=== PATIENT | male | born 1985 | race Caucasian/White ===

== ENCOUNTER 2024-05-28 09:10 | Emergency (ER) | payer MEDICAID, SELFPAY ==
[2024-05-28 09:13] VITALS: BP 150/92; PULSE 97; RESP 18; TEMP 36.4; O2SAT 98; BMI 30.7
--- NOTE | 2024-05-28 10:29 | CRLHL7_ITS ---
For Patients: As a result of the Century Cures Act, medical imaging exams and procedure reports are released immediately into your electronic medical record. You may view this report before your referring provider. If you have questions, please contact your health care provider. Indication: BUTTOCK ABSCESS; 75 LB WEIGHT LOSS Technique: CT abdomen/pelvis with IV contrast, 108 mL Isovue 370 Comparison: None Findings: Lower thorax: Calcified granulomas in the right lower lobe. Abdomen/pelvis: Nodular hepatic contour suggestive of cirrhotic changes. Slightly heterogeneous perfusion of the right hepatic lobe. [place] tail liver morphology. Subcentimeter hypoattenuating lesion in the left hepatic lobe, incompletely characterized on this exam (series number 2, image 29). The gallbladder and biliary system are unremarkable. Spleen is at the upper limits of normal in size. The pancreas and bilateral adrenal glands are unremarkable in appearance. The kidneys, ureters, and bladder are unremarkable. The seminal vesicles, prostate, and visualized external genitalia are unremarkable. There is no evidence of bowel obstruction or inflammation. The appendix is normal. Scattered colonic diverticula without CT evidence of acute diverticulitis. No intra-abdominal or intrapelvic free air, free fluid, or abscess. No abdominopelvic lymphadenopathy. The vasculature is unremarkable. Soft tissue/musculoskeletal: Suspected postsurgical changes of prior ventral abdominal wall hernia repair. There is mild edema in the subcutaneous fat of the visualized right perianal region/perineum without peripherally enhancing fluid collection to suggest the presence of an abscess. The bones are unremarkable in appearance. Impression: 1. There is mild edema in the subcutaneous fat of the visualized right perianal region/perineum without peripherally enhancing fluid collection to suggest the presence of an abscess. Per conversation with the orthopedic radiologic technologist, will rescan the patient with limited field of view of the pelvis extending to the mid femurs to exclude a more inferior abscess. 2. Cirrhotic liver morphology with some heterogeneous perfusion of the right hepatic lobe and a subcentimeter low attenuating lesion in the left hepatic lobe, incompletely characterized on this exam. Recommend outpatient CT or MR with a liver protocol for further assessment. Please note that all CT scans at this facility use dose modulation, iterative reconstruction, and/or weight-based dosing when appropriate to reduce radiation dose to as low as reasonably achievable. Dictated by Chase Contreras MD @ 05/28/2024 11:12:26 AM (Electronically Signed)
--- NOTE | 2024-05-28 10:30 | ED.SKABFB ---
HPI - Skin/Abscess/Foreign Bdy General Chief complaint: Skin/Abscess/Foreign Body Stated complaint: abscess Time Seen by Provider: 05/28/24 09:19 History of Present Illness HPI narrative: This 38-year-old male comes in with a painful abscess in his right buttock. He states that he had similar symptoms about 18 months ago and got relief when it was drained. He also reports a 75 lb weight loss over the past year so. Initially he states that this was an unintentional weight loss however he then reports that he did stop using alcohol and that may have accounted for some of the weight loss. He does report a family history of colon problems including cancer. The family member was about 60 years old when this occurred. He does not report any fevers. Related Data Previous Rx's ?Medication ?Instructions ?Recorded cephalexin 500 mg capsule 500 mg PO TID 7 days #21 caps 05/28/24 metformin 500 mg tablet 500 mg PO BID #60 tabs 05/28/24 Allergies Allergy/AdvReac Type Severity Reaction Status Date / Time No Known Drug Allergies Allergy Verified 05/28/24 10:54 Review of Systems Status of ROS: Reports: 10 or more systems reviewed and unremarkable except as noted in History and below Narrative: Constitutional: No fevers. Eyes: No discharge. No vision changes. HENT: No congestion, no sore throat, no ear pain. Cardiovascular: No chest pain, no palpitations. Respiratory: No shortness of breath, no wheezes, no cough. Gastrointestinal: No abdominal pain, no vomiting, no diarrhea. Genitourinary: No dysuria, no hematuria. Musculoskeletal: Normal range of motion. Skin: No rashes, no pruritis. Neurological: No dizziness, weakness, sensory change, speech change. Endo/Heme/Allergies: No bruising or bleeding. No polydipsia. Pysch: no suicidality, no anxiety, no insomnia. All other systems reviewed and are negative. Exam Narrative: Exam Narrative: Constitutional: Well-developed, well-nourished, no acute distress. HEENT: Normocephalic, atraumatic. Neck: Normal range of motion. Nontender. Supple. Heart: Regular. No murmurs. Normal rate. Intact distal pulses. Lungs: Clear to auscultation. No chest discomfort. No wheezes, rhonchi, or rales. Abdomen: Normal bowel sounds. Nontender. No rebound tenderness. Large swelling approximately 6 x 8 cm in the fold of the right buttock near the anus. No sign of drainage. Back: No midline tenderness. Normal range of motion. Extremities: Normal range of motion. No injury. Skin: Intact. No rash. Warm. No erythema or pallor. Neurologic: No altered sensation. No weakness. Alert and oriented. Psychiatric: No suicidality. No anxiety or depression. No insomnia. Nursing notes and vitals signs are reviewed. Const: Vital Signs, click to edit/add: Vital Signs - 24 hr 05/28/24 09:13 Temperature 97.6 F Pulse Rate [Right Pulse Oximeter] 97 Respiratory Rate 18 Blood Pressure [Ri ght Upper Arm] 150/92 H Pulse Oximetry 98 Oxygen Delivery Me thod Room Air Course Vital Signs Vital signs: Initial Vital Signs Temperature 97.6 F 05/28/24 09:13 Temperature Source Temporal Artery Scan 05/28/24 09:13 Pulse Rate 97 05/28/24 09:13 Pulse Rhythm Regular 05/28/24 09:13 Pulse Strength 3+ Normal 05/28/24 09:13 Respiratory Rate 18 05/28/24 09:13 Blood Pressure 150/92 H 05/28/24 09:13 Blood Pressure Mean 111 H 05/28/24 09:13 Blood Pressure Position Sitting 05/28/24 09:13 Pulse Oximetry 98 05/28/24 09:13 Oxygen Delivery Method Room Air 05/28/24 09:13 Vital Signs Temperature 97.6 F 05/28/24 09:13 Pulse Rate 97 05/28/24 09:13 Respiratory Rate 18 05/28/24 09:13 Blood Pressure 150/92 H 05/28/24 09:13 Pulse Oximetry 98 05/28/24 09:13 Oxygen Delivery Method Room Air 05/28/24 09:13 Temperature 97.6 F 05/28/24 09:13 Pulse Rate 97 05/28/24 09:13 Respiratory Rate 18 05/28/24 09:13 Blood Pressure 150/92 H 05/28/24 09:13 Pulse Oximetry 98 05/28/24 09:13 Oxygen Delivery Method Room Air 05/28/24 09:13 MDM - Skin/Abscess/Foreign Bdy MDM Narrative Medical decision making narrative: This patient comes in with a abscess in his right buttock. He also reports a mostly unintentional weight loss over the past many months or possibly a year. I did recommend incision and drainage of the abscess. After cleansing the area with an alcohol swab I used 1% lidocaine to anesthetize the skin. Using a 11. Blade I was able to puncture through with lots of mostly bloody but some purulent fluid that was drained. I did place iodoform gauze into the incision site and covered it with gauze. Seeing that he had unintentional weight loss and a history in his family of cancer I did order CT scan with IV contrast. I also recommended that he follow up for a colonoscopy. Labs returned with normal results except for significantly elevated blood glucose. I relayed this information to the patient stating that his weight loss could be partly due to elevated glucose. He is not showing any signs of ketoacidosis. He states that he has been taking lots of soft drinks that are not diet since stopping taking alcohol. I advised him to stop these altogether. He states that he is feeling better after his abscess was drained. This CT scan shows no other complications other than the evidence of a abscess head is buttock. The patient received prescriptions for Keflex and metformin. I advised him to follow up with the a primary physician for ongoing management. Lab Data Labs: Lab Results 05/28/24 Range/Units 10:35 WBC 6.11 (4.50-11.00) K/uL RBC 5.38 (4.30-5.90) m/uL Hgb 15.3 (13.5-17.5) gm/dL Hct 43.6 (37.0-53.0) % MCV 81 (80-100) fL MCH 28 (26-34) pg MCHC 35 (32-36) gm/dL RDW Coeff of Simone 11.5 (11.5-15.5) % Plt Count 176 (140-440) K/uL Neut % (Auto) 62.9 (42.0-72.0) % Lymph % (Auto) 23.9 (20-44) % Hartley % (Auto) 12.3 H (0.0-11.0) % Eos % (Auto) 0.7 (0.0-7.0) % Baso % (Auto) 0.2 (0.0-3.0) % Neut # (Auto) 3.85 (1.7-7.0) K/uL Lymph # (Auto) 1.46 (0.90-2.90) K/uL Hartley # (Auto) 0.80 (0.00-0.90) K/UL Eos # (Auto) 0.04 (0.00-0.50) K/uL Baso # (Auto) 0.01 (0.00-0.30) K/uL Abs Immat Gran (auto) 0.00 (0.00-0.30) K/uL Imm/Tot Granulo (auto) 0.0 % Sodium 137 (135-149) mmol/L Potassium 4.3 (3.6-5.1) mmol/L Chloride 103 (96-114) mmol/L Carbon Dioxide 24 (20-32) mmol/L Anion Gap 10 (7-15) mEq/L BUN 11 (5-24) mg/dL Creatinine 0.6 (0.5-1.5) mg/dL Estimated Creat Clear 179.53 Estimated GFR 128 ml/min Glucose 366 H* (60-115) mg/dL Calcium 9.3 (8.4-10.6) mg/dL Imaging Data CT scan - abdomen: Radiologist's impression: 1. There is mild edema in the subcutaneous fat of the visualized right perianal region/perineum without peripherally enhancing fluid collection to suggest the presence of an abscess. Per conversation with the prior authorization technician, will rescan the patient with limited field of view of the pelvis extending to the mid femurs to exclude a more inferior abscess. 2. Cirrhotic liver morphology with some heterogeneous perfusion of the right hepatic lobe and a subcentimeter low attenuating lesion in the left hepatic lobe, incompletely characterized on this exam. Recommend outpatient CT or MR with a liver protocol for further assessment. Please note that all CT scans at this facility use dose modulation, iterative reconstruction, and/or weight-based dosing when appropriate to reduce radiation dose to as low as reasonably achievable. Dictated by Chase Contreras MD @ 05/28/2024 11:12:26 AM ----- ADDENDUM ----- Subsequent images were obtained extending from the femoral heads to the level of the mid femurs. There is a small peripherally enhancing fluid collection with small foci of internal gas seen in the right perianal soft tissues, consistent with an abscess, measuring approximately 3.2 centimeters AP by 0.8 centimeters transverse by 5.6 centimeters craniocaudal with likely packing material seen along the inferior margin of the abscess. There is associated skin thickening and mild adjacent subcutaneous edema. Mild scrotal wall thickening and edema without appreciable scrotal abscess. Discharge Plan Discharge Clinical Impression: Abscess, New onset type 2 diabetes mellitus Patient Disposition: Home, Self-Care Condition: Improved Additional Instructions: Take medication as prescribed. Follow up with primary physician for further workup and management of elevated blood glucose. Return if worsening. Prescriptions: New cephalexin 500 mg capsule 500 mg PO TID 7 Days Qty: 21 0RF metformin 500 mg tablet 500 mg PO BID Qty: 60 2RF Follow Up/Referrals: Provider,Not a Local [Primary Care Provider] - Stand Alone Forms: [employer] Info Instructions
--- OUTSIDE RECORDS SUMMARY | 2024-05-28 10:48 | XMS_ITS | Clinical Summary ---
Author Organization [facility] Address [place], [place] [address] Care Team Providers Care Lead Dental Assistant Name Role Phone Vince Hurst MD Primary Care Provider [phone] Allergies No known active allergies Medications hydrocortisone (Anusol-HC) 25 mg suppositoryIndi cations:Hemorrh oids, external Insert 1 Suppository (25 mg) rectally 3 times daily if needed for Hemorrhoid Pain/Itch. 48 Suppository 3 05/23/19 23 Active lidocaine, anorectal, 5% topical 5 % creamIndication s:Hemorrhoids, external Apply topically to affected area(s) 3 times daily if needed (ext hemorrhoids). 60 g 05/23/19 23 Active hydrocortisone (ANUSOL-HC) 2.5 % rectal creamIndication s:Hemorrhoids, unspecified hemorrhoid type Apply topically to affected area(s) two times daily. 28 g 05/24/19 23 Active omeprazole (PRILOSEC) 40 mg Delayed-Release capsuleIndicati ons:Chronic GERD TAKE 1 CAPSULE(40 MG) BY MOUTH EVERY DAY 30 Capsule 01/28/20 23 Active metroNIDAZOLE 0.75 % gelIndications: Rosacea APPLY TOPICALLY TO THE AFFECTED AREA TWICE DAILY 45 g 01/15/20 24 Active Active Problems Problem Noted Date Diagnosed Date Umbilical hernia without obstruction and without gangrene Immunizations Name Administration Dates Next Due DTP 06/18/1989,05/24/1987,1986 DTaP 10/15/1991, 0,10/26/1987,1987,1986 HIB PRP-OMP (PedvaxHIB) 01/06/1990 Hepatitis B (Adult) 12/11/2000,01/12/1999,1998 MMR 12/07/1998,06/18/1989 Meningococcal Vaccine (Menomune) 09/12/2004 Oral Polio Vaccine 10/15/1991, 8,05/24/1987,1986 Td (Age >=7 Years) 12/07/1998 Td, Preservative Free (age > = 7 Years) 10/05/2007 Tdap 10/29/2019 Varicella Vaccine 03/06/2010(Deferred: Contraindication - Pt had chicken pox 08/1990) Family History Medical History Relation Name Comments Diabetes Father Hypertension Father Stroke Father Diabetes Maternal Grandfather Diabetes Maternal Grandmother Cancer Paternal Grandfather Good Health Paternal Grandmother Relation Name Status Comments Father Alive Maternal Grandfather Alive Maternal Grandmother Alive Mother Alive Paternal Grandfather Paternal Grandmother Alive Social History Tobacco Use Types Packs/Day Years Used Date Smoking Tobacco: Never Smokeless Tobacco: Never Alcohol Use Standard Drinks/Week Comments Not Currently 0 (1 standard drink = 0.6 oz pur e alcohol) PHQ-2 Answer Date Recorded PHQ-2 TOTAL SCORE 0 04/17/2021 Social Connections Answer Date Recorded Do you often feel lonely or isolated from those around you? 0 01/21/2024 Financial Resource Strain Answer Date R ecorded Difficulty of Paying Living Expenses 3 05/23/2024 Difficulty of Paying Living Expenses Not on file 05/23/2024 Food Insecurity Answer Date Recorded Do you worry your food will run out before you are able to buy more? 1 01/21/2024 Transportation Needs Answer Date Record ed Does lack of transportation keep you from medica l appointments? 1 01/21/2024 Does lack of transportation keep you from work, meetings or getting things that you need? 1 01/21/2024 Housing Stability Answer Date Recorded What is your housing situation today? 1 01/21/2024 Utilities Answer Date Recorded Do you have trouble paying f or utilities (for example, heat, electricity, water, phone)? 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 Gender Identity Not on file Sexual Orientation Not on file Obstetrics History Last Filed Vital Signs Vital Sign Reading Time Taken Comments Blood Pressure 142/77 01/21/2024 6:00 PM CDT Pulse 89 01/21/2024 6:00 PM CDT Temperature 37.6 C (99.7 F) 01/21/2024 6:00 PM CDT Respiratory Rate 18 01/21/2024 6:00 PM CDT Oxygen Saturation 97% 01/21/2024 6:00 PM CDT Inhaled Oxygen Concentration - - Weight 113.4 kg (250 lb) 02/03/2023 3:34 PM CDT Height 180.3 cm (5' 11) 02/03/2023 10:34 AM CDT Body Mass Index 34.87 02/03/2023 10:34 AM CDT Plan of Treatment Health Maintenance Due Date Last Done Comments BMI (ht and wt on same day) for age 18+ 04/17/2022 04/17/2021, 10/29/2019, 11/17/2018 Depression screening for age 12+ 04/17/2022 04/17/2021, 10/30/2019, 10/29/2019, Additional history exists COVID-19 vaccine series ( season) 2023 Influenza for age 9-49 12/22/2023 Lipids for age 35-44 01/26/2027 01/26/2022, 04/17/2021, 10/29/2019, Additional history exists Tetanus booster 10/28/2029 10/29/2019, 09/20, 12/07/1998 HIV for age 15-65 Completed 10/29/2019 Hepatitis C screening for age 18-79 Completed 10/29/2019 Tdap Completed 10/29/2019 Pneumococcal series for age 6-49 Aged Out No longer eligible based on patient's age to complete this topic Medical Devices Implanted Type Area Rn Baby Device Identifier Shelf Expiration Date Model / Serial / Lot Mesh Ventral 11cm Ventralight St W/Echo2 - [id number] Implanted:Qty: 1 on 12/08/2018 by Maximiliano Almanzar MD at [facility] 10/18/2019 [id number] / / [id number] Description:NO STICKER JI Procedures Procedure Name Priority Date/Time Associated Diagnosis Comments LIPID PANEL W REFLEX MEASURED LDL Routine 01/26/2022 12:25 PM CDT Chest pain, unspecified type ANTI HIV 1/2 Routine 10/29/2019 2:02 PM CDT Screen for STD (sexually transmitted disease) ANTI HCV Routine 10/29/2019 2:02 PM CDT Screen for STD (sexually transmitted disease) from Last 3 Months or Most Recently Relevant to Health Maintenance Results * LIPID PANEL W REFLEX MEASURED LDL (01/26/2022 12:25 PM CDT) CHOLESTEROL,TOTAL 169 100 - 199 mg/dL 01/26/2022 6:00 PM CDT [facility] TRIGLYCERIDES 65 <150 mg/dL 01/26/2022 6:00 PM CDT [facility] HDL CHOLESTEROL 46 >40 mg/dL 6:00 PM CDT [facility] NON-HDL CHOLESTEROL 123 <145 mg/dl 01/26/2022 6:00 PM CDT [facility] CHOL/HDL RATIO 3.67 <4.50 01/26/2022 6:00 PM CDT [facility] LDL CHOLESTEROL 110 <=130 mg/dL 01/26/2022 6:00 PM CDT [facility] VLDL CHOLESTEROL 13 <=30 mg/dL 01/26/2022 6:00 PM CDT [facility] PROVIDER ORDERED STATUS RANDOM 01/26/2022 6:00 PM CDT [facility] Blood BLOOD SPECIMEN / Unknown Venipuncture / Unknown 01/26/2022 12:25 PM CDT 01/26/2022 12:26 PM CDT us Vince uHrst MD CHEMISTRY Final Resu lt [facility] [place]IP [address] [address] [place] [address] [facility] [address] [place] [id number], * ANTI HCV (10/29/2019 2:02 PM CDT) HEPATITIS C ANTIBODY Non-React haily Non-React haily 10/29/2019 8:02 PM CDT [facility] Comment:Antibodies to HCV no t detected; does not exclude the possibility of exposure to HCV. Blood BLOOD SPECIMEN / Unknown Venipuncture / Unknown 10/29/2019 2:02 PM CDT 10/29/2019 2:04 PM CDT us Vince Hurst MD SEND OUTS Final Resu lt [facility] [address] [place] [address], [place] * ANTI HIV 1/2 (10/29/2019 2:02 PM CDT) HIV-1/HIV-2 ANTIBODY Non-Reacti ve Non-Reacti ve 10/29/2019 8:00 PM CDT [facility] Comment:HIV-1 p24 and HIV-1/ HIV-2 Ab not detected. Blood BLOOD SPECIMEN / Unknown Venipuncture / Unknown 10/29/2019 2:02 PM CDT 10/29/2019 2:04 PM CDT us Vince Hurst MD SEND OUTS Final Resu lt [facility] [address] [place] [address], from Last 3 Months or Most Recently Relevant to Health Maintenance Advance Directives * Full Code (Latest Code Status on File) Date Activated Date Inactivated Comments 12/08/2018 10:27 AM 12/09/2018 2:23 PM Care Teams Lead Dental Assistant Relationship Specialty Start Date End Date Vince Hurst MD [address] [place], [place] [address] [facility] - General 08/22/04
--- OUTSIDE RECORDS SUMMARY | 2024-05-28 10:48 | XMS_ITS | Referral Summary ---
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 Gender Identity Not on file Sexual Orientation Not on file Last Filed Vital Signs Vital Sign Reading Time Taken Comments Blood Pressure 155/92 01/21/2024 6:53 PM CDT Pulse 79 01/21/2024 6:53 PM CDT Temperature 37 C (98.6 F) 01/21/2024 6:53 PM CDT Respiratory Rate 20 01/21/2024 6:53 PM CDT Oxygen Saturation 98% 01/21/2024 6:53 PM CDT Inhaled Oxygen Concentration - - Weight 112.9 kg (248 lb 14.4 oz) 01/21/2024 6:53 PM CDT Height 180.3 cm (5' 11) 01/21/2024 6:53 PM CDT Body Mass Index 34.71 01/21/2024 6:53 PM CDT Plan of Treatment Not on file Procedures Procedure Name Priority Date/Time Associated Diagnosis Comments BASIC METABOLIC PANEL STAT 04/02/2022 5:49 PM EXECUTIVE MARKETING ASSISTANT from Last 3 Months or Most Recently Relevant to Health Maintenance Results * (ABNORMAL) Basic metabolic panel (04/02/2022 5:49 PM EXECUTIVE MARKETING ASSISTANT) Sodium 137 136 - 145 mmol/L 04/02/2022 7:22 PM EXECUTIVE MARKETING ASSISTANT [facility] Potassium 3.9 3.4 - 5.3 mmol/L 04/02/2022 7:22 PM EXECUTIVE MARKETING ASSISTANT [facility] Chloride 101 98 - 107 mmol/L 04/02/2022 7:22 PM EXECUTIVE MARKETING ASSISTANT [facility] Carbon Dioxide (CO2) 22 22 - 29 mmol/L 04/02/2022 7:22 PM EXECUTIVE MARKETING ASSISTANT [facility] Anion Gap 14 7 - 15 mmol/L 04/02/2022 7:22 PM EXECUTIVE MARKETING ASSISTANT [facility] Urea Nitrogen 12.7 6.0 - 20.0 mg/dL 04/02/2022 7:22 PM EXECUTIVE MARKETING ASSISTANT [facility] Creatinine 0.95 0.67 - 1.17 mg/dL 04/02/2022 7:22 PM EXECUTIVE MARKETING ASSISTANT [facility] Calcium 9.6 8.6 - 10.0 mg/dL 04/02/2022 7:22 PM EXECUTIVE MARKETING ASSISTANT [facility] Glucose 174(H) 70 - 99 mg/dL 04/02/2022 7:22 PM EXECUTIVE MARKETING ASSISTANT [facility] GFR Estimate >90 >60 mL/min/1.7 3m2 04/02/2022 7:22 PM EXECUTIVE MARKETING ASSISTANT [facility] Comment:Effective March 232020 eGFRcr in adults is calculated using the 2020 CKD-EPI creatinine equation which includes age and gender (Juan Jose et al., NEJM, DOI: 10.1056/LYGLus6047977) Blood STRUCTURE OF LEFT UPPER LIMB / Unknown Venipuncture / Unknown 04/02/2022 5:49 PM EXECUTIVE MARKETING ASSISTANT 04/02/2022 6:04 PM EXECUTIVE MARKETING ASSISTANT us Jyoti Adams MD LAB - BLOOD ORDERABLES Fi nal Result [facility] [address] [facility], [address] [place] [address], [facility] [phone] from Last 3 Months or Most Recently Relevant to Health Maintenance Care Teams Attic Fans Mechanic Relationship Specialty Start Date End Date No Ref-Primary, Physician PCP - General 04/02/22
--- OUTSIDE RECORDS SUMMARY | 2024-05-28 10:48 | XMS_ITS | Clinical Summary ---
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 Name Role Phone No Ref-Primary, Physician Primary Care Provider Allergies No known active allergies Social History Tobacco Use Types Packs/Day Years Used Date Smoking Tobacco: Never Assessed Adolescent Education Answer Date Record ed Getting School Help Needed Not on file 01/26 Sex and Gender Information Value Date Recorded Sex Assigned at Not on file Legal Sex Male 3:06 AM DIGITAL INTERN Gender Identity Not on file Sexual Orientation [...] 01/21/2024 6:53 PM CDT Plan of Treatment Health Maintenance Due Date Last Done Comments ADVANCE CARE PLANNING 1985 ANNUAL REVIEW OF HM ORDERS 1985 YEARLY PREVENTIVE VISIT 04/17/2022 04/17/2021 COVID-19 Vaccine ( season) 2023 INFLUENZA VACCINE (#1) 2023 PHQ-2 (once per calendar year) 2024 GLUCOSE 04/02/2025 04/02/2022 DTAP/TDAP/TD IMMUNIZATION (7 - Td or Tdap) 10/28/2029 10/29/2019, 10/05/2007, 12/07/1998, Additional history exists ZOSTER IMMUNIZATION (1 of 2) 2036 HEPATITIS B IMMUNIZATION Completed 001, 01/12/1999, 12/07/1998 MENINGITIS IMMUNIZATION Aged Out 09/12/2004 No l onger eligible based on patient's age to complete this topic HEPATITIS C SCREENING Completed 10/29/2019 HIV SCREENING Completed 10/29/2019 HPV IMMUNIZATION Aged Out No longer e ligible based on patient's age to complete this topic Pneumococcal Vaccine: Pediatrics (0 to 5 Years) and At-Risk Patients (6 to 49 Years) Aged Out No longer eligible based on patient's age to complete this topic Procedures Procedure Name Priority Date/Time Associated Diagnosis Comments BASIC METABOLIC PANEL STAT 04/02/2022 5:49 PM DIGITAL INTERN from Last 3 Months or Most Recently Relevant to Health Maintenance Results * (ABNORMAL) Basic metabolic panel (04/02/2022 5:49 PM DIGITAL INTERN) Sodium 137 136 - 145 mmol/L 04/02/2022 7:22 PM DIGITAL INTERN [facility] Potassium 3.9 3.4 - 5.3 mmol/L 04/02/2022 7:22 PM DIGITAL INTERN [facility] Chloride 101 98 - 107 mmol/L 04/02/2022 7:22 PM DIGITAL INTERN [facility] Carbon Dioxide (CO2) 22 22 - 29 mmol/L 04/02/2022 7:22 PM DIGITAL INTERN [facility] Anion Gap 14 7 - 15 mmol/L 04/02/2022 7:22 PM D[employer]ITAL INTERN [facility] Urea Nitrogen 12.7 6.0 - 20.0 mg/dL 04/02/2022 7:22 PM D[employer] INTERN [facility] Creatinine 0.95 0.67 - 1.17 mg/dL 04/02/2022 7:22 PM DIGITAL INTERN [facility] Calcium 9.6 8.6 - 10.0 mg/dL 04/02/2022 7:22 PM DIGITAL INTERN [facility] Glucose 174(H) 70 - 99 mg/dL 04/02/2022 7:22 PM DIGITAL INTERN [facility] GFR Estimate >90 >60 mL/min/1.7 3m2 04/02/2022 7:22 PM DIGITAL INTERN [facility] Comment:Effective March 232020 eGFRcr in adults is calculated using the 2020 CKD-EPI creatinine equation which includes age and gender (Juan Jose et al., NEJM, DOI: 10.1056/KAIGbk9000391) Blood STRUCTURE OF LEFT UPPER LIMB / Unknown Venipuncture / Unknown 04/02/2022 5:49 PM DIGITAL INTERN 04/02/2022 6:04 PM DIGITAL INTERN us Jyoti Adams MD LAB - BLOOD ORDERABLES Fi nal Result [facility] [address] [facility], [address] [place] [id number] [phone] from Last 3 Months or Most Recently Relevant to Health Maintenance Care Teams Director Of Early Childhood Education Relationship Specialty Start Date End Date No Ref-Primary, Physician PCP - General 04/02/22
[2024-05-28 10:52] LABS: Basophils Absolute Auto 0.01 K/uL (0.00-0.30); Basophils Percent Auto 0.2 % (0.0-3.0); Eosinophils Absolute Auto 0.04 K/uL (0.00-0.50); Eosinophils Percent Auto 0.7 % (0.0-7.0); Hematocrit* 43.6 % (37.0-53.0); Hemoglobin* 15.3 gm/dL (13.5-17.5); Lymphocytes Absolute Auto 1.46 K/uL (0.90-2.90); Lymphocytes Percent Auto 23.9 % (20-44); Mean Corpuscular HGB Conc 35 gm/dL (32-36); Mean Corpuscular Hemoglobin 28 pg (26-34); Mean Corpuscular Volume 81 fL (80-100); Monocytes Percent Auto 12.3 % (0.0-11.0); Neutrophils Absolute Auto 3.85 K/uL (1.7-7.0); Neutrophils Percent Auto 62.9 % (42.0-72.0); Platelet Count* 176 K/uL (140-440); RDW Coefficient of Variation % 11.5 % (11.5-15.5); Red Blood Count* 5.38 m/uL (4.30-5.90); Slide Review Reflex No; White Blood Count* 6.11 K/uL (4.50-11.00)
[2024-05-28 11:01] LABS: Chloride* 103 mmol/L (96-114); Potassium* 4.3 mmol/L (3.6-5.1); Sodium* 137 mmol/L (135-149)
[2024-05-28 11:04] LABS: Anion Gap 10 mEq/L (7-15); Blood Urea Nitrogen* 11 mg/dL (5-24); Carbon Dioxide* 24 mmol/L (20-32); Creatinine* 0.6 mg/dL (0.5-1.5); Est. Creatinine Clearance* 179.53; Estimated Glomerular Filt Rate 128 ml/min
[2024-05-28 11:05] LABS: Calcium* 9.3 mg/dL (8.4-10.6)
[2024-05-28 11:08] LABS: Glucose* 366 mg/dL (60-115)
== END 2024-05-28 12:01 | disposition home or self-care (01) ==
PROVIDERS: Emergency Provider Emergency Medicine Emergency Medical Services
DX: L02.31 Cutaneous abscess of buttock (principal); E11.9 Type 2 diabetes mellitus without complications
CPT/HCPCS: 10060; 36415; 74177; 80048; 85025; 99284; Q9967